=== PATIENT | male | born 1975 | race Caucasian/White ===

== ENCOUNTER 2017-12-16 19:13 | Emergency (ER) | payer BC ==
--- NOTE | 2017-12-16 19:18 | PDOC ---
History of Present Illness - General History Source: Patient Exam Limitations: No Limitations - History of Present Illness Initial Comments: 12/16/17 19:54 A portion of this note was documented by scribe services under my direction. I have reviewed the details of the note, within reason, and agree with the documentation. The case summary and management plan written by me. 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 Patient Slatter came out from underneath him he grabbed onto something overhead and felt a tear in his shoulder he then dropped to the ground and denies any other pain in his back or any other injury however is complaining of pain in his shoulder. On exam patient does have pain over the area of the insertion of the short head of the biceps tendon With a defect in that area. Patient placed in sling for comfort and support of the arm. Patient given Toradol in the emergency room and naproxen sent to the pharmacy. <Vitaliy Grady I - Last Filed: 12/16/17 19:54> - General History Source: Patient Exam Limitations: No Limitations - History of Present Illness Initial Comments: The patient is a 42 year old male who presents to the emergency department for evaluation of right shoulder pain since 1230pm. 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 The patient denies head trauma and loss of consciousness. The patient describes the right shoulder pain as constant, localized, throbbing, ranked 8/ 10 in severity. He reports the right shoulder pain is exacerbated with flexion and rotation. The patient reports taking over the counter pain medication ( unsure of name) at 5pm with mild alleviation to pain, but states the pain returned prompting him to visit the emergency department for further evaluation. Of note, the patient reports a history of right shoulder injury. The patient denies chest pain, shortness of breath, headache, and dizziness. Denies fevers, chills, nausea, vomiting, and any urinary/bowel symptoms. Denies any other kinds of injury. PAST MEDICAL HISTORY: no significant history PAST SURGICAL HISTORY: no significant history FAMILY HISTORY: no pertinent history SOCIAL HISTORY: Pt lives with family and is employed. MEDICATIONS: reviewed ALLERGIES: As per nursing notes General: No fevers or chills, no weakness, no weight loss HEENT: No change in vision. No sore throat,. No ear pain Cardiovascular: No chest pain or shortness of breath Respiratory:No cough, or wheezing. Gastrointestinal: no nausea, vomiting, diarrhea or constipation, No rectal bleeding Genitourinary: No dysuria, hematuria, or frequency Musculoskeletal: (+)Right shoulder pain. Neurologic: No headache, vertigo, dizziness or loss of consciousness Psychiatric: nor depression Skin: No rashes or easy bruising Endocrine: no increased thirst or abnormal weight change Allergic: no skin or latex allergy All other systems reviewed and normal GENERAL: The patient is awake, alert, and fully oriented, in no acute distress. HEAD: Normal with no signs of trauma. EYES: Pupils equal, round and reactive to light, extraocular movements intact, sclera anicteric, conjunctiva clear. EXTREMITIES: (+)Tenderness to palpation over anterior shoulder with decreased range of motion secondary to pain. Neurovasculars intact. Swelling, no bony tenderness of shoulder, clavicle, or upper arm. NEUROLOGICAL: Normal speech, normal gait. PSYCH: Normal mood, normal affect. SKIN: Warm, Dry, normal turgor, no rashes or lesions noted. <Felice Bashir - Last Filed: 12/16/17 20:10> - General Chief Complaint: Injury Stated Complaint: RT SHOULDER PAIN Time Seen by Provider: 12/16/17 19:17 Past History <Vitaliy Grady I - Last Filed: 12/16/17 19:54> <Felice Bashir - Last Filed: 12/16/17 20:10> - Past Medical History Allergies/Adverse Reactions: Allergies Allergy/AdvReac Type Severity Reaction Status Date / Time No Known Allergies Allergy Verified 12/16/17 19:13 Home Medications: Ambulatory Orders Naproxen Sodium [Naproxen Sodium ER] 500 mg PO BID #14 tablet.er 12/16/17 *Physical Exam - Vital Signs Last Vital Signs Temp Pulse Resp BP Pulse Ox 99.3 F 83 18 135/93 98 12/16/17 19:13 12/16/17 19:13 12/16/17 19:13 12/16/17 19:13 12/16/17 19:13 <Felice Bashir - Last Filed: 12/16/17 20:10> ED Treatment Course - Medications Given in the ED: ED Medications Discontinued Medications Generic Name Dose Route Start Last Admin Trade Name Asa PRN Reason Stop Dose Admin Ketorolac Tromethamine 60 mg 12/16/17 19:54 12/16/17 20:00 Toradol Injection - IM 12/16/17 19:55 60 mg ONCE ONE Administration <KrystenFelice - Last Filed: 12/16/17 20:10> *DC/Admit/Observation/Transfer - Discharge Dispostion Decision to Admit order: No <Vitaliy Grady I - Last Filed: 12/16/17 19:54> - Attestations Scribe Attestion: Documentation prepared by Felice Bashir, acting as medical educator for Vitaliy Grady MD. <KrystenFelice - Last Filed: 12/16/17 20:10> Diagnosis at time of Disposition: Right anterior shoulder pain - Discharge Dispostion Disposition: HOME Condition at time of disposition: Stable - Prescriptions Prescriptions: Naproxen Sodium [Naproxen Sodium ER] 500 mg PO BID #14 tablet.er - Patient Instructions Additional Instructions: I sent prescription to her pharmacy for naproxen take one tablet twice a day as needed for pain. In addition to that you can also take Tylenol if he needed. Wear the sling until you see the orthopedist. Follow-up with the orthopedist if you need an orthopedist call Dr. Gamino at [phone]. Return to the emergency department immediately with ANY new, persistent or worsening symptoms. Continue any medications as previously prescribed by your physician. . Please make sure your doctor reviews the results of your emergency evaluation. Thank you for coming to the Emergency Department today for your care. It was a pleasure to see you today. Please note that your evaluation is INCOMPLETE until you follow-up with your doctor.
[2017-12-16 19:19] VITALS: BP 135/93; PULSE 83; TEMP 99.3; BMI 31.8
[2017-12-16] MEDS ORDERED: KETOROLAC TROMETHAMINE 60 MG/2 ML VIAL IM ONE (19:54)
[2017-12-16] MEDS ORDERED: KETOROLAC TROMETHAMINE 60 MG/2 ML VIAL ONE (19:56)
== END 2017-12-16 20:10 | disposition home or self-care (01) ==
LOC: FER 19:13
PROC: 3E0233Z Introduction of Anti-inflammatory into Muscle, Percutaneous Approach (ICD-10-PCS; principal; 2017-12-16)
DX: M25.511 Pain in right shoulder (principal)
CPT/HCPCS: 99283-25

== ENCOUNTER 2018-07-23 16:56 | Emergency (ER) | payer BC ==
--- NOTE | 2018-07-23 17:20 | PDOC ---
Rapid Medical Evaluation Chief Complaint: Pain, Acute Medical Evaluation: Allergies Allergy/AdvReac Type Severity Reaction Status Date / Time No Known Allergies Allergy Verified 07/23/18 17:15 07/23/18 17:16 I have performed a brief in-person evaluation of this patient. The patient presents with a chief complaint of: low back pain x 2 weeks, now radiation around to right ribs. recently returned to work from 4mos rotator cuff surgery. Pertinent physical exam findings:mild tenderness but no spasm I have ordered the following: nothing The patient will proceed to the ED for further evaluation. Discharge Disposition - Diagnosis Back pain Qualifiers: Back pain location: low back pain - Discharge Dispostion Condition at time of disposition: Stable - Referrals Referrals: Elvia Garza MD [Primary Care Provider] - - Patient Instructions - Post Discharge Activity
[2018-07-23 17:21] VITALS: BP 144/87; PULSE 78; TEMP 98.1; BMI 30.4
--- NOTE | 2018-07-23 17:22 | PDOC ---
History of Present Illness - General Chief Complaint: Pain, Acute Stated Complaint: ABDOMINAL PAIN Time Seen by Provider: 07/23/18 17:22 - History of Present Illness Initial Comments: 42 year old male with PMH of right rotator cuff surgery (10/08) who has been out o work, rehabing for the past four months presenting with left lower back pain and left lower rib pain for the past week. 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 His left lower back pain is better with massage and heat. His left lower rib pain however, is slightly more concerning as it is sharp, pleuritic, and sometimes makes it difficult for him to take a full breath. 07/23/18 18:17 Past History - Past Medical History Allergies/Adverse Reactions: Allergies Allergy/AdvReac Type Severity Reaction Status Date / Time No Known Allergies Allergy Verified 07/23/18 17:15 Home Medications: Ambulatory Orders Cyclobenzaprine HCl [Flexeril -] 10 mg PO BID #10 tablet 07/23/18 COPD: No - Suicide/Smoking/Psychosocial Hx Smoking History: Never smoked Have you smoked in the past 12 months: No Hx Alcohol Use: No Substance Use Type: None Review of Systems - Review of Systems Constitutional: No: Chills, Fever, Loss of Appetite, Weight Stable HEENTM: No: Eye Pain, Tearing Respiratory: Yes: Shortness of Breath. No: Cough, SOB with Exertion Cardiac (ROS): No: Chest Pain, Irregular Heart Rate, Lightheadedness, Palpitations ABD/GI: No: Diarrhea, Nausea, Vomiting : No: Dysuria, Discharge, Frequency Musculoskeletal: Yes: Back Pain. No: Joint Pain, Joint Swelling Integumentary: No: Bruising, Lesions, Lumps, Pallor Neurological: No: Headache, Numbness, Paresthesia Psychiatric: No: Anxiety, Depression Hematologic/Lymphatic: No: Anemia, Blood Clots, Easy Bleeding *Physical Exam - Vital Signs Last Vital Signs Temp Pulse Resp BP Pulse Ox 98.1 F 78 16 144/87 98 07/23/18 17:16 07/23/18 17:16 07/23/18 17:16 07/23/18 17:16 07/23/18 17:16 - Physical Exam General Appearance: Yes: Nourished, Appropriately Dressed. No: Apparent Distress HEENT: positive: EOMI, MOHINDER, Normal ENT Inspection, Normal Voice Neck: positive: Trachea midline, Normal Thyroid, Supple. negative: Tender, Rigid Respiratory/Chest: positive: Lungs Clear, Normal Breath Sounds. negative: Chest Tender, Respiratory Distress Cardiovascular: positive: Regular Rhythm, Regular Rate Gastrointestinal/Abdominal: positive: Normal Bowel Sounds, Flat, Soft. negative : Tender Lymphatic: negative: Adenopathy, Tenderness Musculoskeletal: negative: Normal Inspection (right lower back - L3 paraspinal muscular tenderness but improved with palpation) Extremity: positive: Normal Capillary Refill, Normal Inspection, Normal Range of Motion. negative: Tender Integumentary: positive: Normal Color, Dry, Warm Neurologic: positive: Fully Oriented, Alert, Normal Mood/Affect, Normal Response , Motor Strength 5/5 Moderate Sedation - Procedure Monitoring Vital Signs: Procedure Monitoring Vital Signs Temperature 98.1 F 07/23/18 17:16 Pulse Rate 78 07/23/18 17:16 Respiratory Rate 16 07/23/18 17:16 Blood Pressure 144/87 07/23/18 17:16 O2 Sat by Pulse Oximetry (%) 98 07/23/18 17:16 ED Treatment Course - LABORATORY CBC & Chemistry Diagram: 07/23/18 17:55 07/23/18 17:55 Medical Decision Making - Medical Decision Making 42 year old male with sudden onset left lower rib iniguez worse with deep inspiration and left lower back pain.Labs WNL , D-dimer negative. Given the d- dimer is an appropriate low risk rule out, this is likely not a PE. Given that the patient has had these pains after resterting work with 3-4 months off in rehab, this is more likely a [facility] pathology. Will DC with flexural PRN for pain. 07/23/18 18:29 *DC/Admit/Observation/Transfer Diagnosis at time of Disposition: Back pain Qualifiers: Back pain location: low back pain Chronicity: acute Back pain laterality: left Sciatica presence: without sciatica Qualified Code(s): M54.5 - Low back pain Chest pain Qualifiers: Chest pain type: chest pain on breathing Qualified Code(s): R07.1 - Chest pain on breathing; R07.81 - Pleurodynia - Discharge Dispostion Disposition: HOME Condition at time of disposition: Improved Decision to Admit order: No - Prescriptions Prescriptions: Cyclobenzaprine HCl [Flexeril -] 10 mg PO BID #10 tablet - Referrals Referrals: Elvia Garza MD [Primary Care Provider] - - Patient Instructions Printed Discharge Instructions: DI for Atypical Chest Pain Additional Instructions: You have no clot in your lungs. Please use your medicine up to twice a day for the pain. Please see your PCP within a week. Please do not use heavy equipment when you use the medication. Please return to the ED if you have any new or worsening symptoms. - Post Discharge Activity
[2018-07-23 18:02] LABS: BASO % 0.6 % (0-2.0); EOS % 4.1 % (0-4.5); HEMATOCRIT 41.6 % (35.4-49); HEMOGLOBIN 14.4 GM/dL (11.7-16.9); LYMPH % 24.4 % (8-40); MCHC 34.6 g/dl (32.0-35.9); MEAN CELL VOLUME 86.7 fl (80-96); MEAN PLT VOLUME 9.1 fl (7.5-11.1); MONO % 8.1 % (3.8-10.2); NEUT % 62.8 % (42.8-82.8); PLATELET COUNT 220 K/MM3 (134-434); RBC 4.81 M/mm3 (4.00-5.60); RDW 14.2 % (11.9-15.9); WHITE BLOOD COUNT 6.2 K/mm3 (4.0-10.0)
[2018-07-23 18:31] LABS: ALBUMIN 4.2 g/dl (3.4-5.0); ALK PHOS 101 U/L (45-117); ANION GAP 7 MMOL/L (8-16); BILIRUBIN,TOTAL 0.4 mg/dL (0.2-1); BLOOD UREA NITROGEN 11 mg/dL (7-18); CALCIUM 9.2 mg/dL (8.5-10.1); CHLORIDE 104 mmol/L (98-107); CO2 29 mmol/L (21-32); CREATININE 0.9 mg/dL (0.55-1.3); GLUCOSE,RANDOM 86 mg/dL (74-106); POTASSIUM 4.3 mmol/L (3.5-5.1); SGOT/AST 25 U/L (15-37); SGPT/ALT 28 U/L (13-61); SODIUM 140 mmol/L (136-145); TOT PROT 7.4 g/dl (6.4-8.2)
--- NOTE | 2018-07-23 18:44 | PDOC ---
Attending Attestation - Resident Resident Name: Ashwin Mac - ED Attending Attestation I have performed the following: I have examined & evaluated the patient, The case was reviewed & discussed with the resident, I agree w/resident's findings & plan, Exceptions are as noted - HPI HPI: 07/23/18 18:38 Ms Hawk is a 42 yo M who present to the ER with a complaint of left chest wall pain Pt s/p right shoulder surgery in January Pt was out of work for the past 4 months Returned to work this month Pt was at work and noticed that he developed left chest wall pain, pleuritic, worse with palpation Pt has had no abdominal pain or distention - Physicial Exam PE: 07/23/18 18:44 GENERAL: The patient is in no acute distress. ENT: Ears normal, nares patent, oropharynx clear without exudates. Moist mucous membranes. NECK: Normal range of motion, supple LUNGS: Breath sounds equal, clear to auscultation bilaterally. No wheezes, and no crackles. HEART:Regular rate and rhythm, normal S1 and S2 without murmur, rub or gallop. ABDOMEN: Soft, nontender, normoactive bowel sounds. No guarding, no rebound. EXTREMITIES: Normal range of motion, no edema. NEUROLOGICAL: Cranial nerves II through XII grossly intact. Normal speech. No focal neurological deficits. MUSCULOSKELETAL: Left lower costal tenderness to palpation SKIN: No rash, no bruising, no erythema - Medical Decision Making 07/23/18 18:47 Will do: Labs EKG CXR Toradol Robaxin Re assess
--- NOTE | 2018-07-25 16:48 | EKG ---
Test Reason : Blood Pressure : / mmHG Vent. Rate : 069 BPM Atrial Rate : 069 BPM P-R Int : 162 ms QRS Dur : 080 ms QT Int : 400 ms P-R-T Axes : 025 010 012 degrees QTc Int : 428 ms SINUS RHYTHM WITH PREMATURE ATRIAL COMPLEXES IN A PATTERN OF BIGEMINY POSSIBLE ANTERIOR INFARCT , AGE UNDETERMINED ABNORMAL ECG NO PREVIOUS ECGS AVAILABLE Confirmed by Estella Burton ([id number]) on 07/25/2018 4:48:09 PM Referred By: Confirmed By:Estella Burton
== END 2018-07-23 20:53 | disposition home or self-care (01) ==
LOC: JER 16:56
DX: M54.5 Low back pain (principal); R07.81 Pleurodynia; R07.1 Chest pain on breathing
CPT/HCPCS: 36415; 71275-TC; 80053; 85025; 85379; 93005; 93010; 99283-25

== ENCOUNTER 2022-05-06 17:30 | Emergency (ER) | payer BC ==
[2022-05-06 18:00] VITALS: BP 155/102; PULSE 83; RESP 20; TEMP 98.2; BMI 31.1
[2022-05-06 18:34] LABS: HEMATOCRIT 45.4 % (35.4-49); HEMOGLOBIN 15.2 G/dL (11.7-16.9); MCH 29.4 pg (25.7-33.7); MCHC 33.5 g/dl (32.0-35.9); MEAN CELL VOLUME 87.7 fl (80-96); RBC 5.18 10^6/uL (4.00-5.60); RDW 13.9 % (11.9-15.9); WHITE BLOOD COUNT 6.2 10^3/uL (4.0-10.8)
[2022-05-06 18:40] LABS: ALBUMIN 4.3 g/dl (3.4-5.0); BILIRUBIN,TOTAL 0.6 mg/dl (0.2-1); CALCIUM 8.9 mg/dl (8.5-10); CREATININE 0.9 mg/dl (0.55-1.3); TOT PROT 7.2 g/dl (6.4-8.2)
[2022-05-06 18:41] LABS: PLATELET ESTIMATE ADEQUATE
[2022-05-06 19:06] LABS: ERYTHROCYTE SEDIMENTATION RATE 6 mm/hr (0-10)
== END 2022-05-06 18:21 | disposition home or self-care (01) ==
LOC: FER 17:30
DX: M25.48 Effusion, other site (principal)
CPT/HCPCS: 36415; 80053; 84443; 85027; 85651; 86140; 86618; 99283-25